=== PATIENT | female | born 1970 ===

== ENCOUNTER → 2017-04-26 | Outpatient (CLI) | payer OTHER | LOC: MHCPAIN 09:31 | DX: G89.29 Other chronic pain (principal); M47.22 Other spondylosis with radiculopathy, cervical region | CPT/HCPCS: G0463 ==

== ENCOUNTER → 2022-05-27 | Outpatient (CLI) | payer OTHER ==
[~2022-05-27] VITALS: Ht 149.9 cm; Wt 47.0 kg
[~2022-05-27] MED LIST: COLACE 100100 MG/CAP PO; FERROUSAL325 MG PO; VITAMIN C500 MG PO
[2022-05-27 11:05] VITALS: BP 116/76; PULSE 84; TEMP 97.9
== END ==
LOC: COL.CARD 04-25 10:45
DX: R07.9 Chest pain, unspecified (principal); I25.2 Old myocardial infarction
CPT/HCPCS: A9500